=== PATIENT | male | born 1965 | race Caucasian/White ===

== ENCOUNTER 2020-03-20 07:23 | Emergency (ER) | payer BC ==
[2020-03-20 07:38] VITALS: BP 97/55; PULSE 85
--- NOTE | 2020-03-20 07:40 | EDM.PDOC ---
"ED HPI GENERAL MEDICAL PROBLEM - General Chief Complaint: General Stated Complaint: LOW OXYGEN, COVID SYMPTOMS Time Seen by Provider: 03/20/20 07:40 Source of Information: Reports: Patient, RN, RN Notes Reviewed History Limitations: Reports: No Limitations - History of Present Illness INITIAL COMMENTS - FREE TEXT/NARRATIVE: Pt presents to ER from home by POV with c/o being sick for two weeks with cough, fever, headache, body aches, and shortness of breath. He saw Dr. Vail in clinic on (03/18/20) and was COVID tested and put on doxycycline. Pt states last night in the night he began to itch all over and woke with hives. He bought a pulse oximeter because he was worried about COVID, and states that his pulse ox was down to 88% at home, but kind of stays around 92%. 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 Denies shortness of breath. He did take Advil 600mg this morning before coming to ER. Denies chest pain, sore throat, vomiting, abdominal pain, or diarrhea. 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, Other Medication(s) Head Pain Score (Numeric/FACES): 5 - Related Data Allergies Allergy/AdvReac Type Severity Reaction Status Date / Time Penicillins Allergy UNKNOWN Verified 03/20/20 07:41 Home Meds: Home Meds atenoloL [Atenolol] 50 mg PO DAILY 03/20/20 [History] Past Medical History Cardiovascular History: Reports: Hypertension Social & Family History - Family History Family Medical History: Noncontributory - Living Situation & Occupation Living situation: Reports: Occupation: Employed ED ROS GENERAL - Review of Systems Review Of Systems: Comprehensive ROS is negative, except as noted in HPI. ED EXAM, GENERAL - Physical Exam Exam: See Below Exam Limited By: No Limitations General Appearance: Alert, WD/WN, No Apparent Distress, Anxious Eye Exam: Bilateral Eye: Normal Inspection Nose: Normal Inspection, Normal Mucosa, No Blood Throat/Mouth: Normal Inspection, Normal Lips, Normal Teeth, Normal Gums, Normal Oropharynx, Normal Voice, No Airway Compromise Head: Atraumatic, Normocephalic Neck: Normal Inspection, Supple, Non-Tender, Full Range of Motion Respiratory/Chest: No Respiratory Distress, Lungs Clear, Normal Breath Sounds, No Accessory Muscle Use, Chest Non-Tender Cardiovascular: Normal Peripheral Pulses, Regular Rate, Rhythm, No Edema, No Gallop, No JVD, No Murmur, No Rub GI/Abdominal: Normal Bowel Sounds, Soft, Non-Tender Back Exam: Normal Inspection Extremities: Normal Inspection Neurological: Alert, Oriented, CN II-XII Intact, Normal Cognition, Normal Gait, No Motor/Sensory Deficits Psychiatric: Anxious Skin Exam: Warm, Dry, Rash (Urticarial rash, generalized) Course - Vital Signs Last Recorded V/S: Last Vital Signs Temp 97 F 03/20/20 07:37 Pulse 85 03/20/20 07:37 Resp 16 03/20/20 07:37 BP 97/55 L 03/20/20 07:37 Pulse Ox 95 03/20/20 07:37 - Orders/Labs/Meds Orders: Active Orders 24 hr Category Date Time Status Chest 1V Frontal [CR] Stat Exams 03/20/20 07:38 Stop Req CULTURE STREP A CONFIRMATION [RM] Stat Lab 03/20/20 07:50 Results STREP SCRN A RAPID W CULT CONF [RM] Stat Lab 03/20/20 07:50 Results Isolation [COMM] Routine Oth 03/20/20 07:38 Active Labs: Laboratory Tests 03/20/20 03/20/20 03/20/20 Range/Units 07:50 07:58 07:58 WBC 4.3 L (5.0-10.0) 10^3/uL RBC 4.55 L (4.6-6.2) 10^6/uL Hgb 13.6 L (14.0-18.0) g/dL Hct 41.5 (40.0-54.0) % MCV 91.2 (80-100) fL MCH 29.9 (27.0-34.0) pg MCHC 32.8 L (33.0-35.0) g/dL Plt Count 215 (150-450) 10^3/uL Neut % (Auto) 79.9 H (42.2-75.2) % Lymph % (Auto) 16.4 L (20.5-50.1) % [place] % (Auto) 3.5 (2-8) % Eos % (Auto) 0.0 L (1.0-3.0) % Baso % (Auto) 0.2 (0.0-1.0) % D-Dimer, Quantitative (0-400) ng/mL Sodium 138 (136-145) mmol/L Potassium 3.7 (3.5-5.1) mmol/L Chloride 101 (98-107) mmol/L Carbon Dioxide 29 (21-32) mmol/L Anion Gap 11.7 (7-13) mEq/L BUN 11 (7-18) mg/dL Creatinine 1.11 (0.70-1.30) mg/dL Est Cr Clr Drug Dosing 84.47 mL/min Estimated GFR (MDRD) > 60 BUN/Creatinine Ratio 9.9 (No establ ref range) Glucose 104 H (74-99) mg/dL Calcium 8.5 (8.5-10.1) mg/dL Ferritin (26-388) mg/mL Total Bilirubin 0.3 (0.2-1.0) mg/dL AST 186 H (15-37) U/L ALT 264 H (16-63) U/L Alkaline Phosphatase 63 (46-116) U/L Troponin I < 0.017 (0.000-0.056) ng/mL C-Reactive Protein 9.5 H (0.0-0.9) mg/dL Total Protein 6.8 (6.4-8.2) g/dL Albumin 2.9 L (3.4-5.0) g/dL Globulin 3.9 Albumin/Globulin Ratio 0.74 SARS CoV-2 RNA Rapid JONATHON Positive H (NEGATIVE) 03/20/20 03/20/20 Range/Units 07:58 07:58 WBC (5.0-10.0) 10^3/uL RBC (4.6-6.2) 10^6/uL Hgb (14.0-18.0) g/dL Hct (40.0-54.0) % MCV (80-100) fL MCH (27.0-34.0) pg MCHC (33.0-35.0) g/dL Plt Count (150-450) 10^3/uL Neut % (Auto) (42.2-75.2) % Lymph % (Auto) (20.5-50.1) % [place] % (Auto) (2-8) % Eos % (Auto) (1.0-3.0) % Baso % (Auto) (0.0-1.0) % D-Dimer, Quantitative 1490 H (0-400) ng/mL Sodium (136-145) mmol/L Potassium (3.5-5.1) mmol/L Chloride (98-107) mmol/L Carbon Dioxide (21-32) mmol/L Anion Gap (7-13) mEq/L BUN (7-18) mg/dL Creatinine (0.70-1.30) mg/dL Est Cr Clr Drug Dosing mL/min Estimated GFR (MDRD) BUN/Creatinine Ratio (No establ ref range) Glucose (74-99) mg/dL Calcium (8.5-10.1) mg/dL Ferritin 3607 H (26-388) mg/mL Total Bilirubin (0.2-1.0) mg/dL AST (15-37) U/L ALT (16-63) U/L Alkaline Phosphatase (46-116) U/L Troponin I (0.000-0.056) ng/mL C-Reactive Protein (0.0-0.9) mg/dL Total Protein (6.4-8.2) g/dL Albumin (3.4-5.0) g/dL Globulin Albumin/Globulin Ratio SARS CoV-2 RNA Rapid JONATHON (NEGATIVE) Meds: Medications Discontinued Medications Generic Name Dose Route Start Last Admin Trade Name Israelq PRN Reason Stop Dose Admin Dexamethasone 8 mg 03/20/20 07:51 03/20/20 08:03 Decadron IM 03/20/20 07:52 8 mg ONETIME ONE Administration Diphenhydramine HCl 25 mg 03/20/20 07:51 03/20/20 08:01 Benadryl PO 03/20/20 07:52 25 mg ONETIME ONE Administration Famotidine 40 mg 03/20/20 07:52 03/20/20 08:01 Pepcid PO 03/20/20 07:53 40 mg ONETIME ONE Administration - Radiology Interpretation Free Text/Narrative:: [facility] Final Radiology Report Call: [phone] assistance Online chat: [email or web address] Name: MELISSA MOMIN Age: 54Years M Date: 03/20/2020 SSN: -- : [id number] Study: CT CHEST WO CONT Requesting Physician: LISET KIRKPATRICK Images: [id number] Addl Studies: Provided Clinical History: COVID Contrast: Without Contrast Medium: Contrast Amount: Contrast Method: Page 1 of 2 PROCEDURE INFORMATION: Exam: CT Chest Without Contrast Exam date and time: 03/20/2020 8:52 AM Age: 54 years old Clinical indication: Cough and fever and other: Covid TECHNIQUE: Imaging protocol: Computed tomography of the chest without contrast. Radiation optimization: All CT scans at this facility use at least one of these dose optimization techniques: automated exposure control; mA and/or kV adjustment per patient size (includes targeted exams where dose is matched to clinical indication); or iterative reconstruction. COMPARISON: No relevant prior studies available. FINDINGS: Tracheobronchial tree: Normal. Lungs: There is similar peripheral patchy ground-glass opacification in the posterior bilateral lower lobes, also involving a small portion of the left upper lobe periphery and 2 very small foci in posterior right apex and mid anterior right upper lobe. Pleural space: Normal. Heart: Normal dimensions. No pericardial effusion. Aorta: Normal. Lymph nodes: No enlarged axillary, mediastinal or hilar lymph nodes. Bones/joints: Normal. Soft tissues: Normal. Other findings: Minimal aortosclerosis in mid abdomen. IMPRESSION: MELISSA MOMIN | Final Radiology Report CONFIDENTIALITY STATEMENT This report is intended only for use by the referring physician, and only in accordance with law. If you received this in error, call [phone]. Page 2 of 2 Bilateral pneumonia, predominantly involving the bilateral lower lobes. Commonly reported imaging features of COVID-19 pneumonia are present. Other processes such as influenza pneumonia and organizing pneumonia, as can be seen with drug toxicity and connective tissue disease, can cause a similar imaging pattern. (Reference: Paulino) References: Paulino Yen et al., Radiological Society of [place] Expert Consensus Statement on Reporting Chest CT Findings Related to COVID-19. Endorsed by the Society of Thoracic Radiology, the [place] [employer], and RSNA. Published August 06, 2019. Thank you for allowing us to participate in the care of your patient. Dictated and Authenticated by: Matt Thakkra MD 03/20/2020 9:37 AM Central Time ([place] & [place]) Departure - Departure Time of Disposition: 09:46 Disposition: Home, Self-Care 01 Condition: Good Clinical Impression: Lower respiratory tract infection due to COVID-19 virus - Discharge Information *PRESCRIPTION DRUG MONITORING PROGRAM REVIEWED*: Not Applicable *COPY OF PRESCRIPTION DRUG MONITORING REPORT IN PATIENT JOSE D: Not Applicable Instructions: COVID-19, COVID-19 Frequently Asked Questions, Prevent the Spread of COVID-19 if You Are Sick - [facility] [place] Forms: ED Department Discharge Additional Instructions: Rx: Decadron (Dexamethasone) 4mg Rx: Zithromax 500mg Rx: Pepcid (Famotidine) 20mg Discontinue Doxycycline and list Doxycycline and Tetracycline as drug allergies with your primary clinic and at all future medical or dental encounters. Call 911 if you develop difficulty breathing or feel that you have a medical emergency. Sepsis Event Note (ED) - Evaluation Sepsis Screening Result: No Definite Risk - Focused Exam Vital Signs: Vital Signs Temp Pulse Resp BP Pulse Ox 03/20/20 07:37 97 F 85 16 97/55 L 95 - My Orders Last 24 Hours: My Active Orders 03/20/20 07:38 Chest 1V Frontal [CR] Stat Isolation [COMM] Routine 03/20/20 07:50 CULTURE STREP A CONFIRMATION [RM] Stat STREP SCRN A RAPID W CULT CONF [RM] Stat - Assessment/Plan Last 24 Hours: My Active Orders 03/20/20 07:38 Chest 1V Frontal [CR] Stat Isolation [COMM] Routine 03/20/20 07:50 CULTURE STREP A CONFIRMATION [RM] Stat STREP SCRN A RAPID W CULT CONF [RM] Stat"
[2020-03-20] MEDS ORDERED: Dexamethasone 4 MG/ML SDV IM ONE (07:51)
[2020-03-20] MEDS ORDERED: diphenhydrAMINE 25 MG Tab PO ONE (07:51)
[2020-03-20] MEDS ORDERED: Famotidine 20 MG Tab PO ONE (07:52)
[2020-03-20 08:32] LABS: ANION GAP 11.7 mEq/L (7-13); CHLORIDE,CL 101 mmol/L (98-107); SODIUM,NA 138 mmol/L (136-145)
--- NOTE | 2020-03-20 09:37 | CT ---
PROCEDURE INFORMATION: Exam: CT Chest Without Contrast Exam date and time: 03/20/2020 8:52 AM Age: 54 years old Clinical indication: Cough and fever and other: Covid TECHNIQUE: Imaging protocol: Computed tomography of the chest without contrast. Radiation optimization: All CT scans at this facility use at least one of these dose optimization techniques: automated exposure control; mA and/or kV adjustment per patient size (includes targeted exams where dose is matched to clinical indication); or iterative reconstruction. COMPARISON: No relevant prior studies available. FINDINGS: Tracheobronchial tree: Normal. Lungs: There is similar peripheral patchy ground-glass opacification in the posterior bilateral lower lobes, also involving a small portion of the left upper lobe periphery and 2 very small foci in posterior right apex and mid anterior right upper lobe. Pleural space: Normal. Heart: Normal dimensions. No pericardial effusion. Aorta: Normal. Lymph nodes: No enlarged axillary, mediastinal or hilar lymph nodes. Bones/joints: Normal. Soft tissues: Normal. Other findings: Minimal aortosclerosis in mid abdomen. IMPRESSION: Bilateral pneumonia, predominantly involving the bilateral lower lobes. Commonly reported imaging features of COVID-19 pneumonia are present. Other processes such as influenza pneumonia and organizing pneumonia, as can be seen with drug toxicity and connective tissue disease, can cause a similar imaging pattern. (Reference: Paulino) References: Paulino Yen, et al., Radiological Society of [place] Expert Consensus Statement on Reporting Chest CT Findings Related to COVID-19. Endorsed by the Society of Thoracic Radiology, the [place] [employer], and RSNA. Published August 06, 2019.
== END 2020-03-20 10:02 | disposition home or self-care (01) ==
LOC: DL.ED 07:23
DX: U07.1 COVID-19 (principal); J22 Unspecified acute lower respiratory infection; L50.9 Urticaria, unspecified; I10 Essential (primary) hypertension; Z88.0 Allergy status to penicillin; Z79.899 Other long term (current) drug therapy
CPT/HCPCS: 36415; 71250; 80053; 82728; 84484; 85025; 85379; 86140; 87081; 87430; 87635; 87804; 96372; 99285; A9270; J1100; U0002

== ENCOUNTER 2021-04-12 05:49 | Day surgery (SDC) | payer BC ==
[2021-04-12] MEDS ORDERED: Midazolam 1 MG/ML 2 ML SDV IV ONE ×6 (05:50→07:11)
[2021-04-12] MEDS ORDERED: fentaNYL 100 MCG/2 ML SDV IV ONE ×3 (05:50→07:01)
[2021-04-12] MEDS ORDERED: Sodium Chloride 0.9% 10 ML Syringe FLUSH PRN (06:00)
[2021-04-12] MEDS ORDERED: Dextrose 5%-0.45% NaCl 1,000 ML IV SCH (06:00)
[2021-04-12] MEDS ORDERED: Midazolam 1 MG/ML 2 ML SDV ONE (06:38)
[2021-04-12] MEDS ORDERED: fentaNYL 100 MCG/2 ML SDV ONE (06:39)
--- NOTE | 2021-04-12 07:59 | OR ---
DATE: 04/12/2021 PROCEDURE: Total colonoscopy. INSTRUMENT USED: [id number] Olympus video colonoscope. PREMEDICATIONS: Fentanyl 100 mcg intravenous, Versed 3.5 mg intravenous. Nasal O2 cannula. The procedure was done under pulse oximetry, BP recording, customer service advocate. INDICATION: Screening colonoscopic examination was done for detection of any polypoid lesions and removal, endoscopic hemostasis therapy if needed. DESCRIPTION OF PROCEDURE: Initial rectal exam showed some anal sphincter spasm. Anoscopy was unremarkable. The colonoscope was passed with ease up to the ileocecal area. Photographs were taken of the normal-appearing cecum identified by landmarks of appendiceal orifice and double-bulged ileocecal folds. No bleeding was noted from any of the visualized areas at the commencement of the examination. The bowel preparation was found to be adequate, Brice scale 3 in all the regions, total score 9. No stricture. No vascular ectasia. No large isolated ulcerations seen. No evidence of diffuse inflammatory bowel disease in the form of friability, contact bleeding, or ulcerations. No polyp or tumor mass identified. Probing the proximal sides of folds and flexures using adequate distention and clearing up the stool material, withdrawal of the scope was made, cecum to rectum time over 6 minutes. No bleeding was noted from any of the visualized areas at the completion of examination. IMPRESSION: Normal study. The patient tolerated procedure well. [facility] /[id number]
[2021-04-12 10:01] VITALS: BP 114/72; PULSE 49
== END 2021-04-12 09:23 | disposition home or self-care (01) ==
LOC: DL.ENDO 05:49
PROVIDERS: ATTEND Internal Medicine Gastroenterology
DX: Z12.11 Encounter for screening for malignant neoplasm of colon (principal); K59.4 Anal spasm; Z01.812 Encounter for preprocedural laboratory examination; Z20.822 Contact with and (suspected) exposure to COVID-19
CPT/HCPCS: 45378; 87635; J2250; J3010; J7042; U0002